=== PATIENT | male | born 1995 | race Caucasian/White ===

== ENCOUNTER 2025-03-11 18:52 | Emergency (ER) | payer OTHER, SELFPAY ==
[2025-03-11 19:21] VITALS: BP 125/108; PULSE 65; RESP 20; TEMP 36.8; O2SAT 99; BMI 28.5
--- NOTE | 2025-03-11 19:27 | ED.WOUNDLAC ---
HPI - Wound/Laceration General Chief Complaint: Wound/Laceration Stated Complaint: Laceration R ring finger Time Seen by Provider: 03/11/25 19:10 History of Present Illness HPI narrative: Patient was preparing food and accidentally cut the tip of his right ring finger. Tetanus up-to-date. No other injury. Related Data Home Medications ?Medication ?Instructions ?Recorded ?Confirmed No Known Home Medications 03/11/25 03/11/25 Allergies Allergy/AdvReac Type Severity Reaction Status Date / Time No Known Drug Allergies Allergy Verified 03/11/25 19:23 Review of Systems Review of Systems ROS Unobtainable: All systems reviewed & are unremarkable except as noted in HPI and below Musculoskeletal Musculoskeletal: Reports as per HPI Patient History Social History Smoking Status: Never smoker Exam Narrative Exam Narrative: General: Alert and conversant. No distress. Appears well nourished and well hydrated Lungs: Nonlabored respiration. Musculoskeletal: Patient has a curvilinear laceration to the tip of the right 4th finger measuring 1.2 cm. No nail involvement Neuro: Alert and oriented. Cranial nerves, motor, sensory and cerebellar all grossly intact. No focal deficit Skin: Warm and normal color. No rashes Psychological: Normal affect and interaction. No evidence of delusion or psychosis. Normal mood. Initial Vital Signs Initial Vital Signs: Vital Signs Temperature 98.3 F 03/11/25 19:21 Pulse Rate 65 03/11/25 19:21 Respiratory Rate 20 03/11/25 19:21 Blood Pressure 125/108 H 03/11/25 19:21 Pulse Oximetry 99 03/11/25 19:21 Oxygen Delivery Method Room Air 03/11/25 19:21 Procedures Laceration Repair Laceration 1: Site: hand (Right 4th finger) Side (If applicable): right Size (cm): 1.2 Description: linear and clean Depth: simple, single layer Pre-repair: cleansed with chlorhexadine Skin layer closed with: dermabond Course Vital Signs Vital signs: Vital Signs - 8 hr 03/11/25 19:21 Temperature 98.3 F Pulse Rate 65 Respiratory Rate 20 Blood Pressure 125/108 H Pulse Oximetry 99 Oxygen Delivery Method Room Air MDM - Wound/Laceration MDM Narrative Medical decision making narrative: Curvilinear superficial laceration of the tip of the right 4th finger which was cleansed, irrigated and repaired with Dermabond with good effect. Home care instructions given. Follow up for any problems with healing Discharge Plan Departure Patient Disposition: Home Clinical Impression: Finger laceration Instructions: DI for Laceration Repair-Skin Glue Activity Restrictions/Additional Instructions: Plan: Keep the wound clean. Keep it dry for 24 hours and then may shower or wash gently. Follow up with your doctor or the ER if not healing appropriately. Prescriptions: No Action No Known Home Medications Stand Alone Forms: Patient Portal/API
== END 2025-03-11 19:59 | disposition home or self-care (01) ==
PROVIDERS: Emergency Provider Emergency Medicine
DX: S61.214A Laceration without foreign body of right ring finger without damage to nail, initial encounter (principal); W45.8XXA Other foreign body or object entering through skin, initial encounter; Y93.G3 Activity, cooking and baking
CPT/HCPCS: 12001; 99282